=== PATIENT | female | born 2000 | race Hispanic/Latino ===

== ENCOUNTER 2022-12-25 15:31 | Emergency (ER) | payer OTHER ==
[~2022-12-25] VITALS: Ht 170.2 cm; Wt 70.4 kg
[2022-12-25 15:32] VITALS: TEMP 98.1
[2022-12-25 18:07] LABS: BASO % 0.5 % (0.0-1.0); EOS # 0.1 10^3/uL (0.0-0.5); EOS % 0.9 % (0.0-3.0); HEMATOCRIT 35.9 % (36.0-47.0); HEMOGLOBIN 12.1 g/dl (12.0-15.5); LYMPH # 1.9 10^3/uL (1.5-5.0); MEAN CORPUSCULAR HEMOGLOBIN 28.6 pg (27.0-33.0); MEAN CORPUSCULAR HGB CONC 33.7 g/dl (32.0-36.5); MEAN CORPUSCULAR VOLUME 84.9 fl (80.0-96.0); MONO # 0.6 10^3/uL (0.0-0.8); MONO % 6.5 % (2.0-8.0); NEUTROPHILS # 6.1 10^3/uL (1.5-8.5); NEUTROPHILS % 69.6 % (36.0-66.0); PLATELET COUNT, AUTOMATED 215 10^3/uL (150-450); RED BLOOD COUNT 4.23 10^6/uL (4.00-5.40); WHITE BLOOD COUNT 8.8 10^3/uL (4.0-10.0)
[2022-12-25 18:27] LABS: BLOOD UREA NITROGEN 9 MG/DL (9-23); CALCIUM LEVEL 8.8 MG/DL (8.5-10.1); CARBON DIOXIDE LEVEL 22 MMOL/L (20-31); CHLORIDE LEVEL 106 MMOL/L (98-107); CREATININE FOR GFR 0.54 MG/DL (0.55-1.30); GLOMERULAR FILTRATION RATE > 60.0 (>60); GLUCOSE, FASTING 73 MG/DL (60-100); POTASSIUM SERUM 3.9 MMOL/L (3.5-5.1); SODIUM LEVEL 139 MMOL/L (136-145)
[2022-12-25 18:42] LABS: HCG, SERUM QUANTITATIVE 74720.6 MIU/ML (<4.2)
[2022-12-25] MEDS ORDERED: metroNIDAZOLE 70GM VAGINAL GEL PV STA (21:19)
[2022-12-25] MEDS ORDERED: METR0.7526 TOP (21:21)
[2022-12-25 22:23] VITALS: BP 127/74; O2SAT 98
[2022-12-25 22:27] LABS: GC DNA AMPLIFICATION NEGATIVE (NEGATIVE)
== END 2022-12-25 22:24 | disposition home or self-care (01) ==
LOC: M ED 15:31
DX: O20.9 Hemorrhage in early pregnancy, unspecified (principal); O23.591 Infection of other part of genital tract in pregnancy, first trimester; Z3A.12 12 weeks gestation of pregnancy

== ENCOUNTER 2023-01-20 10:25 | Emergency (ER) | payer OTHER ==
[~2023-01-20 10:25] MED LIST: METR0.7526 TOP
[2023-01-20 12:12] LABS: BASO % 0.2 % (0.0-1.0); EOS # 0.1 10^3/uL (0.0-0.5); EOS % 0.7 % (0.0-3.0); HEMATOCRIT 34.7 % (36.0-47.0); HEMOGLOBIN 11.3 g/dl (12.0-15.5); LYMPH # 1.7 10^3/uL (1.5-5.0); LYMPH % 19.8 % (24.0-44.0); MEAN CORPUSCULAR HEMOGLOBIN 28.5 pg (27.0-33.0); MEAN CORPUSCULAR HGB CONC 32.6 g/dl (32.0-36.5); MEAN CORPUSCULAR VOLUME 87.4 fl (80.0-96.0); MONO # 0.5 10^3/uL (0.0-0.8); MONO % 6.1 % (2.0-8.0); NEUTROPHILS # 6.3 10^3/uL (1.5-8.5); NEUTROPHILS % 72.6 % (36.0-66.0); PLATELET COUNT, AUTOMATED 198 10^3/uL (150-450); RED BLOOD COUNT 3.97 10^6/uL (4.00-5.40); WHITE BLOOD COUNT 8.6 10^3/uL (4.0-10.0)
[2023-01-20 12:37] LABS: BLOOD UREA NITROGEN 8 MG/DL (9-23); CALCIUM LEVEL 8.8 MG/DL (8.5-10.1); CARBON DIOXIDE LEVEL 25 MMOL/L (20-31); CHLORIDE LEVEL 107 MMOL/L (98-107); CREATININE FOR GFR 0.49 MG/DL (0.55-1.30); GLOMERULAR FILTRATION RATE > 60.0 (>60); GLUCOSE, FASTING 69 MG/DL (60-100); POTASSIUM SERUM 3.8 MMOL/L (3.5-5.1); SODIUM LEVEL 138 MMOL/L (136-145)
[2023-01-20] MEDS ORDERED: ONDANSETRON 4MG 2ML VIAL IV ONE (13:20)
[2023-01-20] MEDS ORDERED: NS 1,000 ML IV ONE (13:20)
[2023-01-20 13:44] LABS: ALBUMIN 3.2 G/DL (3.2-5.2); ALKALINE PHOSPHATASE 41 U/L (46-116); ALT/SGPT 14 U/L (7.0-40); AST/SGOT 11 U/L (<34); BILIRUBIN,DIRECT 0.1 MG/DL (<0.4); BILIRUBIN,TOTAL 0.4 MG/DL (0.3-1.2); TOTAL PROTEIN 6.4 G/DL (5.7-8.2)
[2023-01-20 13:55] LABS: AMORPHOUS SEDIMENT SMALL (NEGATIVE); APPEARANCE, URINE CLOUDY (CLEAR); BACTERIA, URINE AUTO NEGATIVE (NEGATIVE); BILIRUBIN, URINE AUTO NEGATIVE (NEGATIVE); BLOOD, URINE BLOOD NEGATIVE (NEGATIVE); COLOR, URINE YELLOW (YELLOW); GLUCOSE, URINE (UA) AUTO NEGATIVE (NEGATIVE); KETONE, URINE AUTO 1+ mg/dL (NEGATIVE); LEUKOCYTE ESTERASE, URINE AUTO NEGATIVE (NEGATIVE); MUCUS, URINE SMALL (NEGATIVE); NITRITE, URINE AUTO NEGATIVE (NEGATIVE); PROTEIN, URINE AUTO NEGATIVE (NEGATIVE); RBC, URINE AUTO 1 /HPF (0-3); SPECIFIC GRAVITY URINE AUTO 1.012 (1.002-1.035); SQUAMOUS EPITHELIAL CELL UR AU 2 /HPF (0-6); UROBILINOGEN, URINE AUTO 0.2 mg/dL (0.0-2.0); WBC, URINE AUTO 0 /HPF (0-3)
[2023-01-20] MEDS ORDERED: ONDA4TAB6 PO (15:24)
[2023-01-20 15:45] VITALS: BP 113/54; TEMP 97.7; O2SAT 100
== END 2023-01-20 15:48 | disposition home or self-care (01) ==
LOC: M ED 10:25
DX: O26.92 Pregnancy related conditions, unspecified, second trimester (principal); R42 Dizziness and giddiness; R11.0 Nausea; Z3A.16 16 weeks gestation of pregnancy; Z79.83 Long term (current) use of bisphosphonates; Z79.899 Other long term (current) drug therapy
CPT/HCPCS: 80048; 80076; 81001; 85025; 87086; 87635; 96361; 96374; 99284; J2405

== ENCOUNTER 2023-02-15 13:17 | Outpatient (CLI) | payer OTHER ==
[~2023-02-15] VITALS: Ht 170.2 cm; Wt 74.2 kg
[~2023-02-15 13:17] MED LIST changes: +ONDA4TAB6 PO
[2023-02-15] MEDS ORDERED: PRENTAB9 PO (15:24)
[2023-02-15] MEDS ORDERED: HOME MED LIST COMPLETE! XX SCH (15:25)
== END 2023-02-15 14:40 | disposition home or self-care (01) ==
LOC: M LDO 13:17
PROVIDERS: ATTEND Obstetrics & Gynecology
DX: O9A.213 Injury, poisoning and certain other consequences of external causes complicating pregnancy, third trimester (principal); S70.01XA Contusion of right hip, initial encounter; W01.0XXA Fall on same level from slipping, tripping and stumbling without subsequent striking against object, initial encounter; Y92.9 Unspecified place or not applicable; Z3A.20 20 weeks gestation of pregnancy

== ENCOUNTER 2023-04-25 14:57 | Outpatient (CLI) | payer OTHER ==
[~2023-04-25] VITALS: Ht 170.2 cm; Wt 79.8 kg
[~2023-04-25 14:57] MED LIST changes: +PRENTAB9 PO
[2023-04-25 15:17] VITALS: BP 128/71
[2023-04-25] MEDS ORDERED: HOME MED LIST COMPLETE! XX SCH (15:20)
== END 2023-04-25 15:50 | disposition home or self-care (01) ==
LOC: M LDO 14:57
PROVIDERS: ATTEND Advanced Practice Midwife
DX: O36.8130 Decreased fetal movements, third trimester, not applicable or unspecified (principal); Z3A.29 29 weeks gestation of pregnancy
CPT/HCPCS: 59025; 76815; G0463

== ENCOUNTER 2023-06-27 17:58 | Outpatient (CLI) | payer OTHER ==
[~2023-06-27] VITALS: Ht 170.2 cm; Wt 85.0 kg
[2023-06-27] MEDS ORDERED: VITA100T59 PO (18:13)
[2023-06-27] MEDS ORDERED: IRON27TA2 PO (18:13)
[2023-06-27 18:15] VITALS: BP 127/80
[2023-06-27] MEDS ORDERED: HOME MED LIST COMPLETE! XX SCH (18:15)
== END 2023-06-27 20:15 | disposition home or self-care (01) ==
LOC: M LDO 17:58
PROVIDERS: ATTEND Obstetrics & Gynecology
DX: O26.893 Other specified pregnancy related conditions, third trimester (principal); R25.2 Cramp and spasm; R06.02 Shortness of breath; M54.50 Low back pain, unspecified
CPT/HCPCS: 59025; G0463

== ENCOUNTER 2023-07-04 20:14 | Inpatient (IN) | payer OTHER ==
[~2023-07-04] VITALS: Ht 170.2 cm; Wt 85.8 kg
[~2023-07-04 20:14] MED LIST changes: +IRON27TA2 PO; +VITA100T59 PO
[2023-07-04 20:34] VITALS: BP 120/75; TEMP 97.8
[2023-07-04] MEDS ORDERED: ACETAMINOPHEN 500 MG TAB PO ONE (21:00)
[2023-07-04] MEDS ORDERED: diphenhydrAMINE 50MG CAP PO ONE (21:00)
[2023-07-04] MEDS ORDERED: OXYTOCIN DRIP 30 UNITS in IV 1 EA IV PRN ×3 (22:35)
[2023-07-04] MEDS ORDERED: CARBOPROST TROMETHAMINE 250 MCG/ML AMP IM PRN (22:35)
[2023-07-04] MEDS ORDERED: LIDOCAINE 1% MDV 20ML VIAL INFIL PRN (22:35)
[2023-07-04] MEDS ORDERED: LR 1,000 ML IV SCH (22:35)
[2023-07-04] MEDS ORDERED: METHYLERGONOVINE MALEATE 0.2MG/ML 1ML VIAL IM PRN (22:35)
[2023-07-04] MEDS ORDERED: OXYTOCIN INJ 10UNITS/ML 1ML VIAL IM PRN (22:35)
[2023-07-04] MEDS: miSOPROStol 50MCG 1/2 TABLET PO ONE (23:16)
[2023-07-04 23:21] LABS: HEMATOCRIT 32.9 % (36.0-47.0); HEMOGLOBIN 9.7 g/dl (12.0-15.5); MEAN CORPUSCULAR HEMOGLOBIN 21.5 pg (27.0-33.0); MEAN CORPUSCULAR HGB CONC 29.5 g/dl (32.0-36.5); MEAN CORPUSCULAR VOLUME 72.8 fl (80.0-96.0); PLATELET COUNT, AUTOMATED 237 10^3/uL (150-450); RED BLOOD COUNT 4.52 10^6/uL (4.00-5.40); WHITE BLOOD COUNT 9.6 10^3/uL (4.0-10.0)
[2023-07-04] MEDS ORDERED: HOME MED LIST COMPLETE! XX SCH (23:50)
[2023-07-05] VITALS (28 sets, daily range): BP systolic 99–146; BP diastolic 55–85; O2SAT 98–99
[2023-07-05] MEDS: LACTATED RINGER'S 1000 ML IV STA (01:02)
[2023-07-05] MEDS: PENICILLIN G POTASSIUM 5 MU IV 5 MU in D5W MINI-BAG PLUS 100 ML IV STA (01:02)
[2023-07-05] MEDS: NALBUPHINE HCL 1MG/0.1ML (100MG/10ML) MDV IV PRN (01:23)
[2023-07-05] MEDS ORDERED: OXYTOCIN DRIP 30 UNITS in IV 1 EA IV SCH (02:25)
[2023-07-05] MEDS ORDERED: EPIDURAL/PCA KEYS XX PRN (03:30)
[2023-07-05] MEDS ORDERED: LR 500 ML IV PRN (03:30)
[2023-07-05] MEDS ORDERED: diphenhydrAMINE 50MG/ML VIAL IV PRN (03:30)
[2023-07-05] MEDS ORDERED: ePHEDrine SULFATE 25 MG/5 ML(5MG/ML) SYRINGE IVP PRN (03:30)
[2023-07-05] MEDS ORDERED: NALOXONE INJ 0.4MG/1ML VIAL IV PRN (03:30)
[2023-07-05] MEDS: FENTANYL/ROPIVACAINE/NACL BAG 100 ML EPIDURAL SCH (03:31)
[2023-07-05] MEDS: LR 1,000 ML IV SCH (04:36)
[2023-07-05] MEDS: PEN G POT 3,000,000 UNIT/50 ML 3,000,000 UNIT in IV 1 EA IV SCH (05:09)
[2023-07-05] MEDS ORDERED: DOCUSATE SODIUM 100MG CAPSULE PO PRN (07:25)
[2023-07-05] MEDS ORDERED: IBUPROFEN 600MG TAB PO PRN (07:25)
[2023-07-05] MEDS ORDERED: METHYLERGONOVINE MALEATE 0.2 MG TAB PO PRN (07:25)
[2023-07-05] MEDS: OXYTOCIN DRIP 30 UNITS in IV 1 EA IV SCH ×2 (07:25→07:31)
[2023-07-05] MEDS ORDERED: RHOGAM 300MCG (1500IU) INJ IM SCH (07:25)
[2023-07-05] MEDS ORDERED: ACETAMINOPHEN TAB 650MG DOSE (2X325MG) PO PRN (07:25)
[2023-07-05] MEDS: TRANEXAMIC ACID INJection 1,000 MG in NS 100 ML IV PRN (07:51)
[2023-07-05] MEDS: ONDANSETRON 4MG 2ML VIAL IV PRN (08:35)
[2023-07-05] MEDS: IBUPROFEN 800 MG TAB PO PRN (10:06)
[2023-07-05] MEDS: PRENATAL VITAMINS CHEWABLE TABLET PO SCH (10:44)
[2023-07-06 06:00] VITALS: BP 98/55; O2SAT 97
[2023-07-06] MEDS: DIBUCAINE 1% OINTMENT 30GM TOP PRN (08:29)
[2023-07-06] MEDS: ACETAMINOPHEN 500 MG TAB PO PRN (11:50)
[2023-07-06 18:00] VITALS: BP 119/66; O2SAT 99
[2023-07-07] MEDS ORDERED: MEASLES,MUMPS,RUBELLA VACCINE INJ (MMR-II) SC.IMMUN ONE (09:00)
== END 2023-07-06 19:03 | disposition home or self-care (01) | DRG 807 ==
LOC: M LDO 20:14 → M LDI 23:00 → M OBS 07-05 09:50
PROVIDERS: ADMIT Obstetrics & Gynecology; ATTEND Obstetrics & Gynecology
PROC: 10E0XZZ Delivery of Products of Conception, External Approach (ICD-10-PCS; principal; 2023-07-05)
PROC: 0HQ9XZZ Repair Perineum Skin, External Approach (ICD-10-PCS; 2023-07-05)
DX: O70.0 First degree perineal laceration during delivery (principal); Z37.0 Single live birth; Z3A.39 39 weeks gestation of pregnancy; O99.824 Streptococcus B carrier state complicating childbirth; O69.81X0 Labor and delivery complicated by cord around neck, without compression, not applicable or unspecified

== ENCOUNTER 2024-03-13 17:21 | Emergency (ER) | payer OTHER ==
[~2024-03-13] VITALS: Ht 170.2 cm; Wt 84.1 kg
[~2024-03-13 17:21] MED LIST changes: +ONDA-282 PO; -ONDA4TAB6 PO
[2024-03-13 17:25] VITALS: TEMP 97.2; O2SAT 99
[2024-03-13] MEDS: IBUPROFEN 800 MG TAB PO ONE (20:41)
[2024-03-13] MEDS ORDERED: IBUP80TA PO (21:30)
[2024-03-13] MEDS ORDERED: METH-1165 PO (21:30)
[2024-03-13 21:35] VITALS: BP 132/82
== END 2024-03-13 21:36 | disposition home or self-care (01) ==
LOC: M ED 17:21
DX: S33.5XXA Sprain of ligaments of lumbar spine, initial encounter (principal); S73.102A Unspecified sprain of left hip, initial encounter; S73.101A Unspecified sprain of right hip, initial encounter; Y92.9 Unspecified place or not applicable; Y93.9 Activity, unspecified; Y99.9 Unspecified external cause status; V47.5XXA Car driver injured in collision with fixed or stationary object in traffic accident, initial encounter; Z79.1 Long term (current) use of non-steroidal anti-inflammatories (NSAID)